=== PATIENT | male | born 1970 | race Caucasian/White ===

== ENCOUNTER 2020-06-10 13:47 | Outpatient (REF) | payer BC, SELFPAY | END 2020-06-10 13:48 | disposition home or self-care (01) | LOC: HO.LAB 13:47 | PROVIDERS: Visit Provider Internal Medicine | DX: Z20.828 Contact with and (suspected) exposure to other viral communicable diseases (principal) | CPT/HCPCS: C9803; U0003 ==

== ENCOUNTER 2021-01-31 21:11 | Emergency (ER) | payer BC, SELFPAY ==
--- NOTE | ~2021-01-31 | US_ITS ---
EXAMINATION: US VENOUS ULTRASOUND WITH DOPPLER LOWER EXTREMITY, RIGHT CLINICAL INFORMATION: Right lower extremity pain COMPARISON: None TECHNIQUE: Ultrasound of the deep veins is performed from the hip to the calf with compression sonography and color and pulse Doppler assessment. Spectral analysis with color-flow imaging is performed. FINDINGS: There is normal venous compression and respiratory variation and augmented flow. The visualized common femoral vein, superficial femoral vein, profunda femoral vein, popliteal vein, and the trifurcation region shows no evidence of deep venous thrombosis. There is no significant popliteal fossa cyst. There is a prominent right inguinal lymph node with normal morphology. This measures 4.5 x 1 x 3.6 cm. No cortical thickening. If the patient's symptoms persist, followup ultrasound in 5 days 7 days might be of value to exclude proximal propagation from a non-visualized calf vein. US/US venous duplex LE RT IMPRESSION: No DVT demonstrated in the right lower extremity.
[2021-01-31 21:12] VITALS: BP 182/103; PULSE 81; RESP 16; TEMP 37.2; O2SAT 96; BMI 45.9
--- NOTE | 2021-01-31 22:06 | ED_ITS ---
HPI - Extremity Problem General Chief complaint: Extremity Problem Stated complaint: DVT Time Seen by Provider: 01/31/21 22:01 History of Present Illness HPI Narrative: 80-year-old male with a history of paroxysmal AFib. History of cellulitis. Complaining of pain and swelling to the right leg. Positive redness. Positive swelling. Has a history of cellulitis said that lower extremity the past. Been on 2 courses of antibiotic. Last 1 was 4 months ago. No history DVTs. No travel history. Not on blood thinners. No history of blood clots in the past. No fever no chills no systemic complaints. Patient is from home. Also history of hypertension high cholesterol. Related Data Previous Rx's Medication Instructions Recorded doxycycline hyclate 100 mg PO BID 7 Days #14 cap 01/31/21 Allergies Allergy/AdvReac Type Severity Reaction Status Date / Time No Known Allergies Allergy Mild N/A Verified 01/31/21 21:16 Review of Systems 2 Review of Systems: Positive pain to the right leg Yes all other systems are reviewed and are negative PMFSH Past Medical History Attestation statement: The following information was validated with the patient. Medical History Afib High cholesterol HTN (hypertension) Sleep apnea Surgical History H/O cardiac radiofrequency ablation Social History Social History Alcohol intake: never Patient Tobacco Use Status: Never used Tobacco Use of substances other than those prescribed or required for medical reasons: No Advance Directives: No Advance Directives Information Provided: Yes Physical Exam Vital Signs: Vital Signs: Last Vital Signs Temp 99.0 F 01/31/21 21:12 Pulse 78 01/31/21 22:56 Resp 15 01/31/21 22:56 BP 164/85 H 01/31/21 22:56 Pulse Ox 96 01/31/21 22:56 Body Mass Index 45.9 Appearance: Alert. Oriented X3. No acute distress. Eyes: Pupils equal, round and reactive to light. ENT: Pharynx normal. Neck: Normal inspection. Neck supple. No lymph nodes noted. No crepitus CVS: Normal heart rate and rhythm. Pulses normal. Normal S1 and S2 Respiratory: No respiratory distress. Breath sounds normal. No Wheezing. No rales Abdomen: Soft and nontender. No rigidity. No distention. good BS x4 Skin: Skin warm and dry. Normal skin color. Normal skin turgor. Extremities: Positive redness to the lower aspect of the right leg. Positive warmth to touch. There is no calf tenderness elicited on palpation. Calf size is equal at 10 cm below the tibial tuberosity. Motor intact. Sensation intact pulse 2 +at dorsalis pedis bilaterally. Neuro: Oriented X 3. No motor deficit. No sensory deficit. Moving all extermities. No slurred speech MDM - Extremity (Nontraumatic) MDM Narrative Medical decision making narrative: Patient's white counts normal. Doppler negative for DVT. Will start patient on doxycycline. Close follow-up outpatient basis. Sugars 150 the patient had a full meal prior to arrival. In stable condition. Lab Data Result diagrams: 01/31/21 22:21 01/31/21 22:21 Labs: Lab Results 01/31/21 01/31/21 01/31/21 Range/Units 22:21 22:21 22:21 WBC 6.9 (4.8-10.8) X10*3/uL RBC 5.13 (4.60-5.80) X10*6/uL Hgb 13.7 L (14.0-18.0) g/dl Hct 41.7 L (42-52) % MCV 81.3 (80-98) fL MCH 26.7 L (27.0-33.0) pg MCHC 32.9 (31.0-36.0) g/dl RDW 13.8 (11.0-16.0) % Plt Count 234 (160-400) X10*3/uL MPV 9.6 (9.4-12.4) fL Immature Gran % (Auto) 0.3 (0.0-0.4) % Neut % (Auto) 59.3 (45-73) % Lymph % (Auto) 28.2 (20-40) % [place] % (Auto) 7.8 (2-11) % Eos % (Auto) 3.5 (0-4) % Baso % (Auto) 0.9 (0-2) % Lymph # (Auto) 1.9 (1.2-4.9) X10*3/uL Sebastian # (Auto) 0.5 (0.1-1.2) X10*3/uL Eos # (Auto) 0.2 (0.0-0.4) X10*3/uL Baso # (Auto) 0.1 (0.0-0.2) X10*3/uL Abs Immat Gran (auto) 0.02 (0.00-0.03) X10*3/uL Absolute Neuts (auto) 4.1 (2.0-8.3) X10*3/uL Absolute Nucleated RBC 0.000 (0.0-0.012) X10*3/uL Nucleated RBC % (auto) 0.0 (0.0-0.2) /100WBC PT 11.8 (9.9-13.0) SEC INR 1.0 (0.9-1.1) Sodium 142 (135-145) mmol/L Potassium 4.0 (3.3-5.1) mmol/L Chloride 107 (96-108) mmol/L Carbon Dioxide 23 (22-29) mmol/L Anion Gap 16 (12-20) BUN 18 H (9-16) mg/dL Creatinine 1.27 (0.5-1.4) mg/dL Estim Creat Clear Calc 99.1 Estimated GFR 60 Random Glucose 150 H (60-115) mg/dL Calcium 8.7 (8.4-10.2) mg/dL Discharge Plan Discharge Clinical Impression: Cellulitis Patient Disposition: Home, Self-Care Instructions: Cellulitis (ED) Prescriptions: New doxycycline hyclate 100 mg capsule 100 mg PO BID 7 Days Qty: 14 RF: 0 Referrals: Physician,Unknown [Primary Care Provider] - 2 days
[2021-01-31 22:26] LABS: MANUAL DIFF FLAG NO
[2021-01-31 22:27] LABS: Basophils Absolute Auto 0.1 X10*3/uL (0.0-0.2); Basophils Percent Auto 0.9 % (0-2); Eosinophils Absolute Auto 0.2 X10*3/uL (0.0-0.4); Eosinophils Percent Auto 3.5 % (0-4); Hematocrit 41.7 % (42-52); Hemoglobin 13.7 g/dl (14.0-18.0); Imm Gran Abs Auto 0.02 X10*3/uL (0.00-0.03); Imm Gran Pct Auto 0.3 % (0.0-0.4); Lymphocytes Absolute Auto 1.9 X10*3/uL (1.2-4.9); Lymphocytes Percent Auto 28.2 % (20-40); Mean Corpuscular HGB Conc 32.9 g/dl (31.0-36.0); Mean Corpuscular Hemoglobin 26.7 pg (27.0-33.0); Mean Corpuscular Volume 81.3 fL (80-98); Mean Platelet Volume 9.6 fL (9.4-12.4); Monocytes Absolute Auto 0.5 X10*3/uL (0.1-1.2); Monocytes Percent Auto 7.8 % (2-11); Neutrophils Absolute Auto 4.1 X10*3/uL (2.0-8.3); Neutrophils Percent Auto 59.3 % (45-73); Platelet Count 234 X10*3/uL (160-400); Red Blood Count 5.13 X10*6/uL (4.60-5.80); Red Cell Distribution Width 13.8 % (11.0-16.0); White Blood Count 6.9 X10*3/uL (4.8-10.8)
[2021-01-31 22:34] LABS: Prothrombin Time 11.8 SEC (9.9-13.0)
[2021-01-31 22:48] LABS: Anion Gap 16 (12-20); Blood Urea Nitrogen 18 mg/dL (9-16); Calcium 8.7 mg/dL (8.4-10.2); Carbon Dioxide 23 mmol/L (22-29); Chloride 107 mmol/L (96-108); Creatinine Clr Calc Pharmacy 99.1; Estimated Glomerular Filt Rate 60; Glucose Random 150 mg/dL (60-115); Sodium 142 mmol/L (135-145)
[2021-01-31 22:56] VITALS: BP 164/85; PULSE 78; RESP 15; O2SAT 96
== END 2021-01-31 23:41 | disposition home or self-care (01) ==
PROVIDERS: Emergency Provider Emergency Medicine Emergency Medical Services
DX: L03.115 Cellulitis of right lower limb (principal); I10 Essential (primary) hypertension
CPT/HCPCS: 36415; 80048; 85025; 85610; 93971; 99284

== ENCOUNTER 2021-07-13 06:05 | Inpatient (IN) | payer BC, SELFPAY ==
[2021-07-13] VITALS (16 sets, daily range): BP systolic 114–176; BP diastolic 66–104; PULSE 70–126; RESP 14–20; TEMP 36.4; O2SAT 96–100; BMI 46.6
--- NOTE | ~2021-07-13 | XR_ITS ---
EXAMINATION: XR CHEST CLINICAL INFORMATION: Weakness COMPARISON: None TECHNIQUE: Frontal view of the chest was obtained. FINDINGS: The cardiac silhouette does not appear enlarged. The thoracic aorta is tortuous. Hilar and mediastinal contours are otherwise unremarkable. The lungs are clear. There is no pleural effusion or pneumothorax. There are degenerative changes of the spine. XR/XR chest 1V IMPRESSION: No evidence for acute disease in the chest.
--- NOTE | 2021-07-13 06:27 | ECG_ITS ---
Test Reason : Afib Blood Pressure : / mmHG Vent. Rate : 119 BPM Atrial Rate : 000 BPM P-R Int : 000 ms QRS Dur : 100 ms QT Int : 340 ms P-R-T Axes : 000 -10 005 degrees QTc Int : 478 ms Atrial fibrillation with rapid ventricular response Inferior infarct , age undetermined Possible Anterior infarct , age undetermined Abnormal ECG No previous ECGs available Referred By: Generic ED Physician Electronically Signed By:EFREN HOPPER
--- NOTE | 2021-07-13 07:41 | ED.ARRPALP ---
HPI - Arrhythmia/Palpitations General Chief Complaint: General Medical Stated Complaint: heart problems Time Seen by Provider: 07/13/21 07:31 Source: patient Mode of arrival: ambulatory Limitations: no limitations History of Present Illness HPI narrative: has had 2 ablations and multiple cardioversions in the past MD complaint: rapid heart beat, heart racing , palpitations and atrial fibrillation Onset (ago): day(s) (Tuesday ) Duration: constant Severity: moderate Context: occurred during rest Arrhythmia history: atrial fibrillation Associated symptoms: shortness of breath and other (feels like I got run over by a truck ) Treatments prior to arrival: other (took his diltiazem yesterday as well as 200mg flecainide no help) Related Data Home Medications Medication Instructions Recorded Confirmed diltiazem HCl 120 mg 1 cap PO DAILY 07/13/21 07/13/21 capsule,extended release 24 hr flecainide 100 mg tablet 1 tab PO BID 07/13/21 07/13/21 lisinopril 40 mg tablet 1 tab PO DAILY 07/13/21 07/13/21 oxycodone-acetaminophen 5 mg-325 1 - 2 tab PO Q4H PRN 07/13/21 07/13/21 mg tablet pravastatin 20 mg tablet 1 tab PO BEDTIME 07/13/21 07/13/21 tramadol 50 mg tablet 1 tab PO TID PRN 07/13/21 07/13/21 Allergies Allergy/AdvReac Type Severity Reaction Status Date / Time No Known Allergies Allergy Mild N/A Verified 01/31/21 21:16 Review of Systems Review of Systems: Constitutional : No Weight loss, No Fever, No Chills ENT/Mouth : No sore throat, No Rhinorrhea Eyes: No Eye Pain, No Swelling Cardiovascular : no Chest Pain, pos SOB, pos Dyspnea on Exertion, No Orthopnea, No Edema, pos Palpitations Respiratory : No Cough, No Sputum Gastrointestinal : pos Nausea, No Vomiting, No Diarrhea, No abdominal Pain, No Hematochezia, No Melena Genitourinary : No Dysuria, No Urinary Frequency Musculoskeletal : No joint pain, No Myalgias, No Joint Swelling Skin : No Skin Lesions, No rash Neuro : pos Weakness, No Numbness, No Dizziness, No Headache Psych : No Anxiety/Panic, No Depression Heme/Lymph: No Bruising, No Lymphadenopathy Endocrine : No Polyuria, No Polydipsia All other systems reviewed and are negative [facility] Past Medical History Medical History (Updated 07/13/21 @ 09:21 by Mary Jane DO) Afib High cholesterol HTN (hypertension) Sleep apnea Surgical History (Updated 07/13/21 @ 12:47 by Stefani Ramirez NP) H/O cardiac radiofrequency ablation Hx of myringotomy Social History Social History Alcohol intake: never Patient Tobacco Use Status: Never used Tobacco Advance Directives: No Advance Directives Information Provided: Yes Physical Exam Vital Signs: Vital Signs: Last Vital Signs Temp 97.6 F 07/13/21 11:04 Pulse 92 07/13/21 11:51 Resp 18 07/13/21 11:51 BP 147/97 H 07/13/21 11:04 Pulse Ox 97 07/13/21 11:04 BMI result Body Mass Index 46.6 Appearance: Alert. Oriented X3. No acute distress. Eyes: Pupils equal, round and reactive to light. ENT: Pharynx normal. Neck: Normal inspection. Neck supple. CVS: tachycardic and irregular heart rate and rhythm. Pulses normal. Respiratory: No respiratory distress. Breath sounds normal. Abdomen: Soft and nontender. Skin: Skin warm and dry. Normal skin color. Normal skin turgor. Extremities: No lower extremity edema. No calf ttp Neuro: Oriented X 3. No motor deficit. No sensory deficit. Course Course Course Narrative: put on dilt gtt at this time given HR in 120s HR down in 80s labs stable HR back up to 120s on dilt gtt at this time - started him on eliquis given PAF , HTN, obesity up to 15mg on dilt gtt MDM - Arrhythmia/Palpitations MDM Narrative Medical decision making narrative: 50 yo male with hx of PAF, HTN, obesity here with c/o being in afib since overdoing it hunting this , not on DOAC - symptoms started tuesday did not take his medications this AM but did take them yesterday. At this time labs, IV dilt and his AM dose of flecainide ordered. Dispo per results and findings. Lab Data Result diagrams: 07/13/21 08:01 07/13/21 08:01 Labs: Lab Results 07/13/21 07/13/2107/13/21 Range/Units 08:01 08:01 08:01 WBC 8.4 (4.8-10.8) X10*3/uL RBC 5.92 H (4.60-5.80) X10*6/uL Hgb 15.6 (14.0-18.0) g/dl Hct 47.9 (42.0-52.0) % MCV 80.9 (80.0-98.0) fL MCH 26.4 L (27.0-33.0) pg MCHC 32.6 (31.0-36.0) g/dl RDW 14.2 (11.0-16.0) % Plt Count 291 (160-400) X10*3/uL MPV 9.6 (9.4-12.4) fL Immature Gran % (Auto) 0.4 (0.0-0.4) % Neut % (Auto) 61.2 (45-73) % Lymph % (Auto) 27.1 (20-40) % [place] % (Auto) 8.2 (2-11) % Eos % (Auto) 2.3 (0-4) % Baso % (Auto) 0.8 (0-2) % Lymph # (Auto) 2.3 (1.2-4.9) X10*3/uL [place] # (Auto) 0.7 (0.1-1.2) X10*3/uL Eos # (Auto) 0.2 (0.0-0.4) X10*3/uL Baso # (Auto) 0.1 (0.0-0.2) X10*3/uL Abs Immat Gran (auto) 0.03 (0.00-0.03) X10*3/uL Absolute Neuts (auto) 5.2 (2.0-8.3) x10*3/uL Absolute Nucleated RBC 0.000 (0.0-0.012) X10*3/uL Nucleated RBC % (auto) 0.0 (0.0-0.2) /100WBC PT 10.9 (9.9-13.0) SEC INR 1.0 (0.9-1.1) APTT 37.6 (24.1-38.0) SEC Sodium 141 (135-145) mmol/L Potassium 4.6 (3.3-5.1) mmol/L Chloride 109 H (96-108) mmol/L Carbon Dioxide 25 (22-29) mmol/L Anion Gap 12 (12-20) BUN 15 (9-16) mg/dL Creatinine 0.90 (0.5-1.4) mg/dL Estim Creat Clear Calc 141.1 Estimated GFR > 60 Random Glucose 120 H (60-115) mg/dL Calcium 9.3 D (8.4-10.2) mg/dL Magnesium 2.1 (1.6-2.6) mg/dL Total Bilirubin 0.5 (0.0-1.0) mg/dL Direct Bilirubin 0.2 (0.0-0.5) mg/dL AST 19 (5-37) U/L ALT 36 (0-40) U/L Alkaline Phosphatase 96 (39-117) U/L Troponin I High Sens (<3.5-35.0) ng/L B-Natriuretic Peptide (<100) pg/mL Total Protein 6.8 (6.5-8.0) g/dL Albumin 4.1 (3.5-5.0) g/dL TSH 0.55 (0.32-4.0) uIU/mL COVID-19 ([facility]) (Negative) COVID-19 Clin Com 07/13/21 07/13/21 Range/Units 08:01 09:12 WBC (4.8-10.8) X10*3/uL RBC (4.60-5.80) X10*6/uL Hgb (14.0-18.0) g/dl Hct (42.0-52.0) % MCV (80.0-98.0) fL MCH (27.0-33.0) pg MCHC (31.0-36.0) g/dl RDW (11.0-16.0) % Plt Count (160-400) X10*3/uL MPV (9.4-12.4) fL Immature Gran % (Auto) (0.0-0.4) % Neut % (Auto) (45-73) % Lymph % (Auto) (20-40) % [place] % (Auto) (2-11) % Eos % (Auto) (0-4) % Baso % (Auto) (0-2) % Lymph # (Auto) (1.2-4.9) X10*3/uL [place] # (Auto) (0.1-1.2) X10*3/uL Eos # (Auto) (0.0-0.4) X10*3/uL Baso # (Auto) (0.0-0.2) X10*3/uL Abs Immat Gran (auto) (0.00-0.03) X10*3/uL Absolute Neuts (auto) (2.0-8.3) x10*3/uL Absolute Nucleated RBC (0.0-0.012) X10*3/uL Nucleated RBC % (auto) (0.0-0.2) /100WBC PT (9.9-13.0) SEC INR (0.9-1.1) APTT (24.1-38.0) SEC Sodium (135-145) mmol/L Potassium (3.3-5.1) mmol/L Chloride (96-108) mmol/L Carbon Dioxide (22-29) mmol/L Anion Gap (12-20) BUN (9-16) mg/dL Creatinine (0.5-1.4) mg/dL Estim Creat Clear Calc Estimated GFR Random Glucose (60-115) mg/dL Calcium (8.4-10.2) mg/dL Magnesium (1.6-2.6) mg/dL Total Bilirubin (0.0-1.0) mg/dL Direct Bilirubin (0.0-0.5) mg/dL AST (5-37) U/L ALT (0-40) U/L Alkaline Phosphatase (39-117) U/L Troponin I High Sens 4.9 (<3.5-35.0) ng/L B-Natriuretic Peptide 135 H (<100) pg/mL Total Protein (6.5-8.0) g/dL Albumin (3.5-5.0) g/dL TSH (0.32-4.0) uIU/mL COVID-19 ([facility]) Negative (Negative) COVID-19 Clin Com See Note ECG Data Attestation: I personally reviewed and interpreted this ECG as follows: ECG interpretation date: 07/13/21 ECG interpretation time: 07:43 Interpretation: Rate: 119s Rhythm: afib with RVR [place]: normal Normal QRS complex. ST T wave : nonspecific, no RAYMUNDO qTC: normal prior studies: no acute ischemia The study has been interpreted contemporaneously by me. EKG #2 Rate: 80s Rhythm: afib [place]: normal Normal QRS complex. ST T wave : no RAYMUNDO, nonspecific qTC: normal prior studies: no acute ischemia artifact noted The study has been interpreted contemporaneously by me. . Discharge Plan Discharge Clinical Impression: Atrial fibrillation with rapid ventricular response Patient Disposition: Admitted As Inpatient
--- NOTE | 2021-07-13 07:53 | ECG_ITS ---
Test Reason : rapid afib Blood Pressure : / mmHG Vent. Rate : 089 BPM Atrial Rate : 000 BPM P-R Int : 000 ms QRS Dur : 100 ms QT Int : 364 ms P-R-T Axes : 000 018 013 degrees QTc Int : 442 ms Atrial fibrillation Abnormal ECG When compared with ECG of 13-JUL-2021 06:31, Borderline criteria for Anterior infarct are no longer Present No significant change was found Referred By: Mary Jane Electronically Signed By:EFREN HOPPER
[2021-07-13 08:04] LABS: MANUAL DIFF FLAG NO
[2021-07-13] MEDS: dilTIAZem HCL 50 MG/10 ML VIAL 10 MG IVPUSH ×2 (08:14→09:08)
[2021-07-13] MEDS: Flecainide Acetate 50 MG TABLET 100 MG PO ×2 (08:14→22:02)
[2021-07-13 08:15] LABS: Basophils Absolute Auto 0.1 X10*3/uL (0.0-0.2); Basophils Percent Auto 0.8 % (0-2); Eosinophils Absolute Auto 0.2 X10*3/uL (0.0-0.4); Eosinophils Percent Auto 2.3 % (0-4); Hematocrit 47.9 % (42.0-52.0); Hemoglobin 15.6 g/dl (14.0-18.0); Imm Gran Abs Auto 0.03 X10*3/uL (0.00-0.03); Imm Gran Pct Auto 0.4 % (0.0-0.4); Lymphocytes Absolute Auto 2.3 X10*3/uL (1.2-4.9); Lymphocytes Percent Auto 27.1 % (20-40); Mean Corpuscular HGB Conc 32.6 g/dl (31.0-36.0); Mean Corpuscular Hemoglobin 26.4 pg (27.0-33.0); Mean Corpuscular Volume 80.9 fL (80.0-98.0); Mean Platelet Volume 9.6 fL (9.4-12.4); Monocytes Absolute Auto 0.7 X10*3/uL (0.1-1.2); Monocytes Percent Auto 8.2 % (2-11); Neutrophils Absolute Auto 5.2 x10*3/uL (2.0-8.3); Neutrophils Percent Auto 61.2 % (45-73); Platelet Count 291 X10*3/uL (160-400); Red Blood Count 5.92 X10*6/uL (4.60-5.80); Red Cell Distribution Width 14.2 % (11.0-16.0); White Blood Count 8.4 X10*3/uL (4.8-10.8)
[2021-07-13 08:24] LABS: Alanine Aminotransferase 36 U/L (0-40); Albumin Level 4.1 g/dL (3.5-5.0); Alkaline Phosphatase 96 U/L (39-117); Anion Gap 12 (12-20); Aspartate Amino Transferase 19 U/L (5-37); Bilirubin Direct 0.2 mg/dL (0.0-0.5); Bilirubin Total 0.5 mg/dL (0.0-1.0); Blood Urea Nitrogen 15 mg/dL (9-16); Calcium 9.3 mg/dL (8.4-10.2); Carbon Dioxide 25 mmol/L (22-29); Chloride 109 mmol/L (96-108); Creatinine Clr Calc Pharmacy 141.1; Estimated Glomerular Filt Rate > 60; Glucose Random 120 mg/dL (60-115); Magnesium 2.1 mg/dL (1.6-2.6); Potassium 4.6 mmol/L (3.3-5.1); Sodium 141 mmol/L (135-145); Total Protein 6.8 g/dL (6.5-8.0)
[2021-07-13 08:28] LABS: B Type Natriuretic Peptide 135 pg/mL (<100); Troponin-I High Sensitivity 4.9 ng/L (<3.5-35.0)
[2021-07-13 08:40] LABS: Prothrombin Time 10.9 SEC (9.9-13.0)
[2021-07-13 08:42] LABS: Partial Thromboplastin Time 37.6 SEC (24.1-38.0)
[2021-07-13 08:43] LABS: TSH reflex Free T4 0.55 uIU/mL (0.32-4.0)
[2021-07-13] MEDS: Acetaminophen 325 MG TABLET 650 MG PO ×2 (09:08→15:44)
[2021-07-13] MEDS: Ibuprofen 600 MG TABLET PO (09:08)
[2021-07-13 09:32] LABS: COVID-19 Test Negative (Negative)
[2021-07-13] MEDS: dilTIAZem HCL 125 MG in 0.9 % Sodium Chloride 100 ML 10 MG IVCONT (10:26)
[2021-07-13] MEDS: Apixaban 5 MG TABLET PO (11:17)
--- NOTE | 2021-07-13 12:45 | P.HPHOSP_ITS ---
History of Present Illness Date of Service: 07/13/21 Attending physician on admission: Colten Ray Chief Complaint: Fast heart rate 50 year old man presenting with increased heart rate with history of atrial fibrillation. he reports that over the weekend he went hunting and had been running up hills and feels like he over did it. He started to have dizziness, palpitations and generally feeling unwell. He has a longstanding history of atrial fibrillation, he has been on flecainide for over 10 years. He has a history of 2 ablations and cardioversions. He is not on anticoagulation. His heart rate has been up to the 120s, blood pressure within acceptable limits. No fever or leukocytosis noted. He denies chest pain, shortness breath, nausea, vomiting, diarrhea. He was given IV diltiazem and a dose of Flecanide, Then subsequently started on diltiazem drip. He will be admitted for further management and treatment of acute on chronic atrial fibrillation with rapid ventricular response. Review of Systems Review of Systems: Denies any recent fever chills or decrease in appetite respiratory denies any shortness of breath coverage production cardiovascular see HPI gastrointestinal denies any dysphagia abdominal pain nausea vomiting or diarrhea genitourinary denies any dysuria frequency or hematuria musculoskeletal denies any joint pain or swelling neuropsych denies any weakness or seizures all other systems reviewed are negative [facility] Medical History (Updated 07/13/21 @ 09:21 by Mary Jane DO) Afib High cholesterol HTN (hypertension) Sleep apnea Pertinent family history: no cardiac disease Surgical History (Updated 07/13/21 @ 12:47 by Stefani Ramirez NP) H/O cardiac radiofrequency ablation Hx of myringotomy Social History Alcohol intake: never Patient Tobacco Use Status: Never used Tobacco Advance Directives: No Advance Directives Information Provided: Yes Meds Allergies Allergy/AdvReac Type Severity Reaction Status Date / Time No Known Allergies Allergy Mild N/A Verified 01/31/21 21:16 Active Medications: Current Medications Acetaminophen (Acetaminophen 325 Mg Tablet) 650 mg PO Q6H PRN PRN Reason: Pain, Mild (Pain Scale 1-3) Enoxaparin Sodium (Enoxaparin Sodium 40 Mg/0.4 Ml Syringe) 40 mg SUBCUT Q24H JASPAL Diltiazem HCl 125 mg/ Sodium (Chloride) 125 mls @ 0 mls/hr IVCONT .Q0M [facility]; Protocol Last Titration: 07/13/21 11:31 Dose: 15 mg/hr, 15 mls/hr Documented by: Ondansetron HCl (Ondansetron Hcl 4 Mg/2 Ml Vial) 4 mg IVPUSH Q8H PRN PRN Reason: Nausea and Vomiting Pharmacy Consult (Consult Rx Perform Med Rec) 1 each MISCELLANE ONCE PRN PRN Reason: Consult order Pharmacy Consult (Consult Rx Perform Med Rec) 1 each MISCELLANE ONCE PRN PRN Reason: Consult order Sodium Chloride (0.9 % Sodium Chloride Flush 3 Ml Syringe) 3 ml IVFLUSH [facility] Home Medications Medication Instructions Recorded Confirmed Last Taken Type diltiazem HCl 120 mg 1 cap PO DAILY 07/13/21 07/13/21 07/12/21 History capsule,extended release 24 hr flecainide 100 mg tablet 1 tab PO BID 07/13/21 07/13/21 07/12/21 History lisinopril 40 mg tablet 1 tab PO DAILY 07/13/21 07/13/21 07/12/21 History oxycodone-acetaminophen 5 mg-325 1 - 2 tab PO Q4H PRN 07/13/21 07/13/21 Unknown History mg tablet pravastatin 20 mg tablet 1 tab PO BEDTIME 07/13/21 07/13/21 07/12/21 History tramadol 50 mg tablet 1 tab PO TID PRN 07/13/21 07/13/21 Unknown History Physical Exam Vital Signs and Narrative: Vital Signs: Last Vital Signs Temp 97.6 F 07/13/21 11:04 Pulse 92 07/13/21 11:51 Resp 18 07/13/21 11:51 BP 147/97 H 07/13/21 11:04 Pulse Ox 97 07/13/21 11:04 BMI result Body Mass Index 46.6 Appearing in no acute distress head is normocephalic atraumatic eyes pupils are PERRLA sclera is anicteric mouth throat mucous membranes are intact and moist neck is supple no lymphadenopathy, no JVD noted lung sounds are clear to auscultation heart regular rate rhythm, clear S1, S2 positive bowel sounds, abdomen is soft, nontender neuro patient is alert x3, no focal deficits Results Labs CBC and Chem 7: 07/13/21 08:01 07/13/21 08:01 Labs: Laboratory Results - last 24 hr 07/13/21 07/13/21 07/13/21 08:01 08:01 08:01 MCV 80.9 MCH 26.4 L MCHC 32.6 RDW 14.2 Plt Count 291 MPV 9.6 Immature Gran % (Auto) 0.4 Neut % (Auto) 61.2 Lymph % (Auto) 27.1 [place] % (Auto) 8.2 Eos % (Auto) 2.3 Baso % (Auto) 0.8 Lymph # (Auto) 2.3 [place] # (Auto) 0.7 Eos # (Auto) 0.2 Baso # (Auto) 0.1 Abs Immat Gran (auto) 0.03 Absolute Neuts (auto) 5.2 Absolute Nucleated RBC 0.000 Nucleated RBC % (auto) 0.0 PT 10.9 INR 1.0 APTT 37.6 Anion Gap 12 Estim Creat Clear Calc 141.1 Estimated GFR > 60 Random Glucose 120 H Calcium 9.3 D Magnesium 2.1 Total Bilirubin 0.5 Direct Bilirubin 0.2 AST 19 ALT 36 Alkaline Phosphatase 96 Troponin I High Sens B-Natriuretic Peptide Total Protein 6.8 Albumin 4.1 TSH 0.55 COVID-19 ([facility]) COVID-19 Clin Com 07/13/21 07/13/21 08:01 09:12 MCV MCH MCHC RDW Plt Count MPV Immature Gran % (Auto) Neut % (Auto) Lymph % (Auto) [place] % (Auto) Eos % (Auto) Baso % (Auto) Lymph # (Auto) [place] # (Auto) Eos # (Auto) Baso # (Auto) Abs Immat Gran (auto) Absolute Neuts (auto) Absolute Nucleated RBC Nucleated RBC % (auto) PT INR APTT Anion Gap Estim Creat Clear Calc Estimated GFR Random Glucose Calcium Magnesium Total Bilirubin Direct Bilirubin AST ALT Alkaline Phosphatase Troponin I High Sens 4.9 B-Natriuretic Peptide 135 H Total Protein Albumin TSH COVID-19 ([facility]) Negative COVID-19 Clin Com See Note Imaging Radiologist's Impressions: Impressions Chest X-Ray 07/13/21 08:32 IMPRESSION: No evidence for acute disease in the chest. Assessment and Plan (1) Atrial fibrillation with rapid ventricular response: Status: Acute 50 year old man admitted with afib rvr, TSH and mag wnl. Acute on chronic rapid atrial fibrillation Started on Diltiazem drip Continue Flecanide Cardiology consult [id number] score 1, not on ac Hypertension. Stable blood pressure Continue lisinopril DVT prophylaxis with Lovenox Attending Dr. Ray Full code Quality Stroke Does the patient have a stroke diagnosis?: No VTE Prior VTE?: No VTE Risk Level:: Medical - moderate - high VTE Device Contraindication: Treatment Not Indicated VTE Drug Contraindication: N/A - Med Ordered
--- NOTE | 2021-07-13 13:38 | PHA.MEDREC ---
Pharmacy Consult ? Medication Reconciliation Pharmacy has completed the medication reconciliation. There are no remarkable issues for provider's attention. Lila Miranda, RajeevD
--- NOTE | 2021-07-13 17:56 | PC.NURSE ---
nwe bag of cardizen 125mg/ 100ml hung. rate unchanged at 15mg/hr.
[2021-07-13] MEDS: oxyCODONE HCl Immed Release 5 MG TABLET PO (20:25)
--- NOTE | 2021-07-13 21:24 | PC.NURSE ---
CALLED PHARMACY FOR ADONIS
--- NOTE | 2021-07-13 22:00 | PC.NURSE ---
RESTING IN BED. LUNGS CLEAR MONITOR AFIB RATE 70-80'S AT REST.
--- NOTE | 2021-07-13 22:00 | MHC.CM.PN ---
CM met with admitted patient with bed assignment pending. A&Ox3. No IMM necessary. No HCP on file. Pt educated, declines at this time. PCP Dr. Russo. Fully vaccinated and boosted with [employer]. Employed by [employer]. Lives with . Has no DME or services. D/C plan is home without services. Transportation by family. CM to follow for d/c needs.
[2021-07-13] MEDS: Pravastatin Sodium 20 MG TABLET PO (22:02)
--- NOTE | 2021-07-13 22:08 | PC.NURSE ---
Addendum entered by Gracie Ruiz 07/13/21 22:15: TIME OF DISCUSSION WAS 1710. Original Note: DR MONTAÑO HERE. DISCUSSED CARDIZEM DRIP WITH HIM. HR 70-80'S AT REST INCREASES TO 100-119 WHEN ACTIVE. ? TITRATE DRIP. CONTINUE DRIP UNLESS HR DROPS.
[2021-07-14] VITALS (12 sets, daily range): BP systolic 110–155; BP diastolic 59–99; PULSE 66–118; RESP 15–20; TEMP 36.4–36.6; O2SAT 94–98
--- NOTE | 2021-07-14 01:16 | PC.NURSE ---
PT MOVED TO BED 13. REPORT GIVEN TO PHILIPP POTTER.
--- NOTE | 2021-07-14 01:58 | PC.NURSE ---
ASSUMING CARE FOR PATIENT, PATIENT HEART RATE IS 68 ON THE MONITOR. PER PROTOCOL OF DILTIAZEM DRIP IS TO HOLD FOR HEART RATE UNDER 90. HOSPITALIST IS AWARE, AWAITING FURTHER ORDERS FROM HOSPITALIST.
[2021-07-14] MEDS: dilTIAZem HCL 30 MG TABLET PO (02:08)
[2021-07-14] MEDS: oxyCODONE HCl Immed Release 5 MG TABLET PO ×3 (05:48→20:22)
[2021-07-14 07:26] LABS: MANUAL DIFF FLAG NO
[2021-07-14 07:40] LABS: Basophils Absolute Auto 0.1 X10*3/uL (0.0-0.2); Basophils Percent Auto 0.7 % (0-2); Eosinophils Absolute Auto 0.2 X10*3/uL (0.0-0.4); Eosinophils Percent Auto 2.7 % (0-4); Hematocrit 48.5 % (42.0-52.0); Hemoglobin 15.7 g/dl (14.0-18.0); Imm Gran Abs Auto 0.03 X10*3/uL (0.00-0.03); Imm Gran Pct Auto 0.4 % (0.0-0.4); Lymphocytes Percent Auto 26.6 % (20-40); Mean Corpuscular HGB Conc 32.4 g/dl (31.0-36.0); Mean Corpuscular Hemoglobin 26.3 pg (27.0-33.0); Mean Corpuscular Volume 81.2 fL (80.0-98.0); Mean Platelet Volume 9.9 fL (9.4-12.4); Monocytes Absolute Auto 0.6 X10*3/uL (0.1-1.2); Monocytes Percent Auto 7.6 % (2-11); Neutrophils Absolute Auto 4.7 x10*3/uL (2.0-8.3); Platelet Count 299 X10*3/uL (160-400); Red Blood Count 5.97 X10*6/uL (4.60-5.80); White Blood Count 7.5 X10*3/uL (4.8-10.8)
[2021-07-14 07:59] LABS: Anion Gap 13 (12-20); Blood Urea Nitrogen 16 mg/dL (9-16); Calcium 9.1 mg/dL (8.4-10.2); Carbon Dioxide 23 mmol/L (22-29); Chloride 106 mmol/L (96-108); Creatinine Clr Calc Pharmacy 123.3; Estimated Glomerular Filt Rate > 60; Glucose Random 166 mg/dL (60-115); Potassium 4.3 mmol/L (3.3-5.1); Sodium 138 mmol/L (135-145)
[2021-07-14] MEDS: dilTIAZem HCL 125 MG in 0.9 % Sodium Chloride 100 ML 10 MG IVCONT (09:11)
[2021-07-14] MEDS: Flecainide Acetate 50 MG TABLET 100 MG PO ×2 (09:12→20:22)
[2021-07-14] MEDS: lisinopriL 40 MG TABLET PO (10:26)
[2021-07-14] MEDS: Apixaban 5 MG TABLET PO ×2 (10:52→20:22)
--- NOTE | 2021-07-14 11:15 | P.PNIM_ITS ---
Subjective Subjective Date of Service: 07/14/21 Review of Systems F-up atrial fibrillation with rapid ventricular response Feeling better but tired Denies chest pain, shortness breath, nausea, vomiting, diarrhea All other systems are reviewed and are negative Physical Exam Vital Signs: Vital Signs: Last Vital Signs Temp 97.9 F 07/14/21 10:38 Pulse 107 H 07/14/21 10:38 Resp 15 07/14/21 10:38 BP 130/98 H 07/14/21 10:38 Pulse Ox 95 07/14/21 10:38 BMI result Body Mass Index 46.6 Appearing in no acute distress lung sounds are clear to auscultation HR IRIR positive bowel sounds, abdomen is soft, nontender neuro patient is alert x3, no focal deficits Objective Data Active Medications Acetaminophen (Acetaminophen 325 Mg Tablet) 650 mg PO Q6H PRN PRN Reason: Pain, Mild (Pain Scale 1-3) Last Admin: 07/13/21 15:44 Dose: 650 mg Documented by: GLENYS Apixaban (Apixaban 5 Mg Tablet) 5 mg PO BID [facility] Last Admin: 07/14/21 10:52 Dose: 5 mg Documented by: POPPY Flecainide Acetate (Flecainide Acetate 50 Mg Tablet) 100 mg PO BID [facility] Last Admin: 07/14/21 09:12 Dose: 100 mg Documented by: CAROLINA Diltiazem HCl 125 mg/ Sodium (Chloride) 125 mls @ 0 mls/hr IVCONT .Q0M [facility], [facility]; Protocol Last Admin: 07/14/21 09:11 Dose: 10 mg/hr, 10 mls/hr Documented by: CAROLINA Lisinopril (Lisinopril 40 Mg Tablet) 40 mg PO DAILY [facility], [facility]; Protocol Last Admin: 07/14/21 10:26 Dose: 40 mg Documented by: MARCOS Ondansetron HCl (Ondansetron Hcl 4 Mg/2 Ml Vial) 4 mg IVPUSH Q8H PRN PRN Reason: Nausea and Vomiting Oxycodone HCl (Oxycodone Hcl Immed Release 5 Mg Tablet) 5 mg PO Q4H PRN PRN Reason: Pain Last Admin: 07/14/21 05:48 Dose: 5 mg Documented by: ERON Pharmacy Consult (Consult Rx Perform Med Rec) 1 each MISCELLANE ONCE PRN PRN Reason: Consult order Pravastatin Sodium (Pravastatin Sodium 20 Mg Tablet) 20 mg PO BEDTIME [facility] Last Admin: 07/13/21 22:02 Dose: 20 mg Documented by: GASPER Sodium Chloride (0.9 % Sodium Chloride Flush 3 Ml Syringe) 3 ml IVFLUSH QSHIFT [facility] Last Admin: 07/14/21 09:12 Dose: Not Given Documented by: CAROLINA Non-Admin Reason: IV Running Labs CBC & Chem 7: 07/14/21 07:13 07/14/21 07:13 Labs: Laboratory Results - last 24 hr 07/14/21 07/14/21 07:13 07:13 MCV 81.2 MCH 26.3 L MCHC 32.4 RDW 14.0 Plt Count 299 MPV 9.9 Immature Gran % (Auto) 0.4 Neut % (Auto) 62.0 Lymph % (Auto) 26.6 [place] % (Auto) 7.6 Eos % (Auto) 2.7 Baso % (Auto) 0.7 Lymph # (Auto) 2.0 [place] # (Auto) 0.6 Eos # (Auto) 0.2 Baso # (Auto) 0.1 Abs Immat Gran (auto) 0.03 Absolute Neuts (auto) 4.7 Absolute Nucleated RBC 0.000 Nucleated RBC % (auto) 0.0 Anion Gap 13 Estim Creat Clear Calc 123.3 Estimated GFR > 60 Random Glucose 166 H D Calcium 9.1 Assessment and Plan (1) Atrial fibrillation with rapid ventricular response: Status: Acute Assessment and Plan: 50 year old man admitted with afib rvr, TSH and mag wnl. Acute on chronic rapid atrial fibrillation Started on Diltiazem drip, continue Continue Flecanide Plan for GORAN cardioversion, NPO after midnight Started Eliquis 5mg BID Hypertension.? Stable blood pressure Continue lisinopril DVT prophylaxis with Eliquis Attending Dr. Ray Full code Quality Stroke Does the patient have a stroke diagnosis?: No VTE Prior VTE?: No VTE Risk Level:: Medical - moderate - high VTE Device Contraindication: Treatment Not Indicated VTE Drug Contraindication: N/A - Med Ordered
--- NOTE | 2021-07-14 11:32 | PM.CNCAR ---
History of Present Illness History of Present Illness Date of Service: 07/14/21 Chief complaint: Afib RVR Narrative: This is a cardiology consultation regarding atrial fibrillation. He generally goes to [facility], Dr. Wynn. He has a history of paroxysmal atrial fibrillation and has undergone 2 ablations more than 10 years ago. He has also had numerous cardioversions and according to him he has almost had 7 or so cardioversions over the last few years but nothing recently. He generally takes flecainide 100 mg b.i.d. at home and diltiazem. Not on anticoagulation due to low thrombotic risk. He is morbidly obese. He was hunting over the weekend and was running up hills and at that time he feels he went into atrial fibrillation. He feels palpitations and some shortness of breath during these times. He was since admitted for further care. He was on Cardizem drip but that was stopped overnight. He continues to be in atrial fibrillation with a rate in the 120s. Review of Systems Review of Systems: Yes all other systems are reviewed and are negative Cardiovascular: Cardiovascular: Reports as per HPI, Reports no additional cardiovascular complaints, Denies acrocyanosis, Denies cool extremities, Denies painful fingertips, Denies chest pain, Denies chest pain at rest, Denies diaphoresis, Denies syncope, Reports irregular heart rhythm, Denies claudication, Denies leg edema, Denies lightheadedness, Denies palpitations and Reports dyspnea Respiratory: Respiratory: Reports dyspnea Neurologic: Denies syncope Endocrine: Endocrine: Denies palpitations PMFSH Past Medical History Medical History (Updated 07/13/21 @ 09:21 by Mary Jane DO) Afib High cholesterol HTN (hypertension) Sleep apnea Family History Pertinent family history: Denies any significant family cardiac issues. Surgical History Surgical History (Updated 07/13/21 @ 12:47 by Stefani Ramirez NP) H/O cardiac radiofrequency ablation Hx of myringotomy Social History Social History Alcohol intake: never Patient Tobacco Use Status: Never used Tobacco Advance Directives: No Advance Directives Information Provided: Yes service: No Current occupational status: employed Meds Allergies Allergy/AdvReac Type Severity Reaction Status Date / Time No Known Allergies Allergy Mild N/A Verified 01/31/21 21:16 Active Medications: Current Medications Acetaminophen (Acetaminophen 325 Mg Tablet) 650 mg PO Q6H PRN PRN Reason: Pain, Mild (Pain Scale 1-3) Last Admin: 07/13/21 15:44 Dose: 650 mg Documented by: Apixaban (Apixaban 5 Mg Tablet) 5 mg PO BID [facility] Last Admin: 07/14/21 10:52 Dose: 5 mg Documented by: Flecainide Acetate (Flecainide Acetate 50 Mg Tablet) 100 mg PO BID [facility] Last Admin: 07/14/21 09:12 Dose: 100 mg Documented by: Diltiazem HCl 125 mg/ Sodium (Chloride) 125 mls @ 0 mls/hr IVCONT .Q0M [facility]; Protocol Last Admin: 07/14/21 09:11 Dose: 10 mg/hr, 10 mls/hr Documented by: Lisinopril (Lisinopril 40 Mg Tablet) 40 mg PO DAILY [facility]; Protocol Last Admin: 07/14/21 10:26 Dose: 40 mg Documented by: Ondansetron HCl (Ondansetron Hcl 4 Mg/2 Ml Vial) 4 mg IVPUSH Q8H PRN PRN Reason: Nausea and Vomiting Oxycodone HCl (Oxycodone Hcl Immed Release 5 Mg Tablet) 5 mg PO Q4H PRN PRN Reason: Pain Last Admin: 07/14/21 05:48 Dose: 5 mg Documented by: Pharmacy Consult (Consult Rx Perform Med Rec) 1 each MISCELLANE ONCE PRN PRN Reason: Consult order Pravastatin Sodium (Pravastatin Sodium 20 Mg Tablet) 20 mg PO BEDTIME [facility] Last Admin: 07/13/21 22:02 Dose: 20 mg Documented by: Sodium Chloride (0.9 % Sodium Chloride Flush 3 Ml Syringe) 3 ml IVFLUSH QSHIFT [facility] Last Admin: 07/14/21 09:12 Dose: Not Given Documented by: Home Medications Medication Instructions Recorded Confirmed Last Taken Type diltiazem HCl 120 mg 1 cap PO DAILY 07/13/21 07/13/21 07/12/21 History capsule,extended release 24 hr flecainide 100 mg tablet 1 tab PO BID 07/13/21 07/13/21 07/12/21 History lisinopril 40 mg tablet 1 tab PO DAILY 07/13/21 07/13/21 07/12/21 History oxycodone-acetaminophen 5 mg-325 1 - 2 tab PO Q4H PRN 07/13/21 07/13/21 Unknown History mg tablet pravastatin 20 mg tablet 1 tab PO BEDTIME 07/13/21 07/13/21 07/12/21 History tramadol 50 mg tablet 1 tab PO TID PRN 07/13/21 07/13/21 Unknown History Physical Exam Vital Signs: Vital Signs: Last Vital Signs Temp 97.9 F 07/14/21 10:38 Pulse 107 H 07/14/21 10:38 Resp 15 07/14/21 10:38 BP 130/98 H 07/14/21 10:38 Pulse Ox 95 07/14/21 10:38 BMI result Body Mass Index 46.6 Const: General: no acute distress HENMT: Other: Unremarkable Neck: Neck: Yes normal visual inspection Chest: Chest palpation & inspection: normal inspection of the chest Resp: Auscultation: no crackles and no wheezes Cardio: Palpation: normal PMI Heart sounds: S1 normal heart sound present, S2 normal heart sound present, no gallops, no murmurs and no rubs GI: Palpation (GI): Soft to palpation Back/Spine/Pelvis: Other: unremarkable Skin: Lesions: other Neuro: Cranial nerves: Yes Other cranial nerve findings present Extrem: General: Yes other Psych: Mental Status: other Objective Labs and Meds Result diagrams: 07/14/21 07:13 07/14/21 07:13 Lab results: Laboratory Results - last 24 hr 07/14/21 07/14/21 07:13 07:13 WBC 7.5 RBC 5.97 H Hgb 15.7 Hct 48.5 MCV 81.2 MCH 26.3 L MCHC 32.4 RDW 14.0 Plt Count 299 MPV 9.9 Immature Gran % (Auto) 0.4 Neut % (Auto) 62.0 Lymph % (Auto) 26.6 [place] % (Auto) 7.6 Eos % (Auto) 2.7 Baso % (Auto) 0.7 Lymph # (Auto) 2.0 [place] # (Auto) 0.6 Eos # (Auto) 0.2 Baso # (Auto) 0.1 Abs Immat Gran (auto) 0.03 Absolute Neuts (auto) 4.7 Absolute Nucleated RBC 0.000 Nucleated RBC % (auto) 0.0 Sodium 138 Potassium 4.3 Chloride 106 Carbon Dioxide 23 Anion Gap 13 BUN 16 Creatinine 1.03 Estim Creat Clear Calc 123.3 Estimated GFR > 60 Random Glucose 166 H D Calcium 9.1 ECG Interpretation: EKG with atrial fibrillation at around 120/Min. Telemetry is similar. Assessment and Plan (1) Atrial fibrillation with rapid ventricular response: Status: Acute He continues to be in atrial fibrillation and rapid rate in spite of the diltiazem drip. We discussed about cardioversion. As he has been in atrial fibrillation for greater than 48 hours, he will need a GORAN as well. We will schedule this for tomorrow. In the interim, continue diltiazem drip. Also start him on Eliquis. We will follow up with you. Procedures Date of Service Date of Service: 07/14/21
--- NOTE | 2021-07-14 12:36 | PC.NURSE ---
PT TRANSPORTED TO ED OVERFLOW UNIT
--- NOTE | 2021-07-14 13:11 | PC.NURSE ---
pt moved over from the main ed, to the overflow pt is running on the cardizam drip at 15mg/hr heart rate in a fib will range from 115-99 bp stable at 137/83 pt also reports having a headache and requested the oxycodone, pain at 01/01
[2021-07-14] MEDS: dilTIAZem HCL 125 MG in 0.9 % Sodium Chloride 100 ML 15 MG IVCONT (16:56)
--- NOTE | 2021-07-14 19:30 | PC.NURSE ---
Assumed care of pt Pt tolerating cardizem gtt Denies any CP/SOB AxO x 4, clear and complete sentences Ambulatory. Gait even and steady A. fib on monitor, HR 80s-90s bpm Will continue to monitor
[2021-07-14] MEDS: Pravastatin Sodium 20 MG TABLET PO (20:22)
--- NOTE | 2021-07-14 20:30 | PC.NURSE ---
Pt medicated per SEP Pt tolerated well Pt c/o chronic back and shoulder pain. Pt medicated per SEP Will continue to monitor
--- NOTE | 2021-07-14 23:07 | PC.NURSE ---
Pt resting on stretcher on his side with eyes closed Breathing even and unlabored Will continue to monitor
[2021-07-15] VITALS (9 sets, daily range): BP systolic 110–134; BP diastolic 70–86; PULSE 70–78; RESP 16–20; TEMP 36.3–36.8; O2SAT 95–99; BMI 47.3
[2021-07-15] MEDS: 0.9 % Sodium Chloride Flush 3 ML SYRINGE IVFLUSH (01:39)
[2021-07-15] MEDS: dilTIAZem HCL 125 MG in 0.9 % Sodium Chloride 100 ML 15 MG IVCONT (01:39)
[2021-07-15] MEDS: Melatonin 3 MG TABLET 6 MG PO (01:46)
--- NOTE | 2021-07-15 05:56 | PC.NURSE ---
Pt wheeled to short stay for cardioversion Pt on monitor and cardizem gtt Report given to RN Per short stay RN, pt may or may not come back to overflow if pt doesn't have room upstairs after procedure
[2021-07-15] MEDS: Lactated Ringers 1,000 ML 50 ML IVCONT (06:35)
[2021-07-15 06:39] LABS: Hematocrit 46.3 % (42.0-52.0); Hemoglobin 15.2 g/dl (14.0-18.0); Mean Corpuscular HGB Conc 32.8 g/dl (31.0-36.0); Mean Corpuscular Hemoglobin 26.6 pg (27.0-33.0); Mean Corpuscular Volume 81.1 fL (80.0-98.0); Mean Platelet Volume 9.7 fL (9.4-12.4); Platelet Count 267 X10*3/uL (160-400); Red Blood Count 5.71 X10*6/uL (4.60-5.80); Red Cell Distribution Width 14.2 % (11.0-16.0); White Blood Count 7.4 X10*3/uL (4.8-10.8)
[2021-07-15 06:53] LABS: Anion Gap 11 (12-20); Blood Urea Nitrogen 16 mg/dL (9-16); Calcium 9.3 mg/dL (8.4-10.2); Carbon Dioxide 24 mmol/L (22-29); Chloride 108 mmol/L (96-108); Creatinine Clr Calc Pharmacy 125.6; Estimated Glomerular Filt Rate > 60; Glucose Random 134 mg/dL (60-115); Potassium 4.4 mmol/L (3.3-5.1); Sodium 139 mmol/L (135-145)
--- NOTE | 2021-07-15 07:25 | P.CONAN_ITS ---
[facility] Active Problems Active Problems: All Active Problems (Updated 07/13/21 @ 09:21 by Mary ling DO) Atrial fibrillation with rapid ventricular response (Acute) Past Medical History Medical History Afib High cholesterol HTN (hypertension) Sleep apnea Surgical History Surgical History H/O cardiac radiofrequency ablation Hx of myringotomy History of Problems with Anesthesia: No Social History Social History Alcohol intake: never Patient Tobacco Use Status: Former Tobacco user Tobacco use type: Cigarette Use of substances other than those prescribed or required for medical reasons: No Are you DNR?: No Advance Directives: No Advance Directives Information Provided: Yes Recently lost weight without trying: No How much weight loss: 14-23 pounds Nutrition Risks: No Nutritional Risk Poor oral hygiene: No service: No Current occupational status: employed Meds Allergies Allergy/AdvReac Type Severity Reaction Status Date / Time No Known Allergies Allergy Mild N/A Verified 01/31/21 21:16 Active Medications: Current Medications Acetaminophen (Acetaminophen 325 Mg Tablet) 650 mg PO Q6H PRN PRN Reason: Pain, Mild (Pain Scale 1-3) Last Admin: 07/13/21 15:44 Dose: 650 mg Documented by: Apixaban (Apixaban 5 Mg Tablet) 5 mg PO BID [facility] Last Admin: 07/14/21 20:22 Dose: 5 mg Documented by: Flecainide Acetate (Flecainide Acetate 50 Mg Tablet) 100 mg PO BID [facility] Last Admin: 07/14/21 20:22 Dose: 100 mg Documented by: Diltiazem HCl 125 mg/ Sodium (Chloride) 125 mls @ 0 mls/hr IVCONT .Q0M [facility]; Protocol Last Admin: 07/15/21 01:39 Dose: 15 mg/hr, 15 mls/hr Documented by: Lisinopril (Lisinopril 40 Mg Tablet) 40 mg PO DAILY [facility]; Protocol Last Admin: 07/14/21 10:26 Dose: 40 mg Documented by: Melatonin (Melatonin 3 Mg Tablet) 6 mg PO BEDTIME PRN PRN Reason: Insomnia Last Admin: 07/15/21 01:46 Dose: 6 mg Documented by: Ondansetron HCl (Ondansetron Hcl 4 Mg/2 Ml Vial) 4 mg IVPUSH Q8H PRN PRN Reason: Nausea and Vomiting Oxycodone HCl (Oxycodone Hcl Immed Release 5 Mg Tablet) 5 mg PO Q4H PRN PRN Reason: Pain Last Admin: 07/14/21 20:22 Dose: 5 mg Documented by: Pharmacy Consult (Consult Rx Perform Med Rec) 1 each MISCELLANE ONCE PRN PRN Reason: Consult order Pravastatin Sodium (Pravastatin Sodium 20 Mg Tablet) 20 mg PO BEDTIME [facility] Last Admin: 07/14/21 20:22 Dose: 20 mg Documented by: Sodium Chloride (0.9 % Sodium Chloride Flush 3 Ml Syringe) [facility] Last Admin: 07/15/21 01:39 Dose: 3 ml Documented by: Home Medications Medication Instructions Recorded Confirmed Last Taken Type diltiazem HCl 120 mg 1 cap PO DAILY 07/13/21 07/13/21 07/12/21 History capsule,extended release 24 hr flecainide 100 mg tablet 1 tab PO BID 07/13/21 07/13/21 07/12/21 History lisinopril 40 mg tablet 1 tab PO DAILY 07/13/21 07/13/21 07/12/21 History oxycodone-acetaminophen 5 mg-325 1 - 2 tab PO Q4H PRN 07/13/21 07/13/21 Unknown History mg tablet pravastatin 20 mg tablet 1 tab PO BEDTIME 07/13/21 07/13/21 07/12/21 History tramadol 50 mg tablet 1 tab PO TID PRN 07/13/21 07/13/21 Unknown History Exam Exam Date and Time: July 15, 2021 0725 Height,Weight and Vital Signs: Height 5 ft 10 in Weight 149.685 kg Last Vital Signs Temp 98.2 F 07/15/21 06:13 Pulse 70 07/15/21 06:13 Resp 16 07/15/21 06:13 BP 128/77 07/15/21 06:13 Pulse Ox 95 07/15/21 06:13 Pertinent Lab Results Pertinent Lab Results: Laboratory Tests 07/13/21 07/13/21 07/13/21 08:01 08:01 08:01 WBC 8.4 RBC 5.92 H Hgb 15.6 Hct 47.9 MCV 80.9 MCH 26.4 L MCHC 32.6 RDW 14.2 Plt Count 291 MPV 9.6 Immature Gran % (Auto) 0.4 Neut % (Auto) 61.2 Lymph % (Auto) 27.1 [place] % (Auto) 8.2 Eos % (Auto) 2.3 Baso % (Auto) 0.8 Lymph # (Auto) 2.3 [place] # (Auto) 0.7 Eos # (Auto) 0.2 Baso # (Auto) 0.1 Abs Immat Gran (auto) 0.03 Absolute Neuts (auto) 5.2 Absolute Nucleated RBC 0.000 Nucleated RBC % (auto) 0.0 PT 10.9 INR 1.0 APTT 37.6 Sodium 141 Potassium 4.6 Chloride 109 H Carbon Dioxide 25 Anion Gap 12 BUN 15 Creatinine 0.90 Estim Creat Clear Calc 141.1 Estimated GFR > 60 Random Glucose 120 H Calcium 9.3 D Magnesium 2.1 Total Bilirubin 0.5 Direct Bilirubin 0.2 AST 19 ALT 36 Alkaline Phosphatase 96 Troponin I High Sens B-Natriuretic Peptide Total Protein 6.8 Albumin 4.1 TSH 0.55 COVID-19 ([facility]) COVID-19 Clin Com 07/13/21 07/13/21 07/14/21 08:01 09:12 07:13 WBC 7.5 RBC 5.97 H Hgb 15.7 Hct 48.5 MCV 81.2 MCH 26.3 L MCHC 32.4 RDW 14.0 Plt Count 299 MPV 9.9 Immature Gran % (Auto) 0.4 Neut % (Auto) 62.0 Lymph % (Auto) 26.6 [place] % (Auto) 7.6 Eos % (Auto) 2.7 Baso % (Auto) 0.7 Lymph # (Auto) 2.0 [place] # (Auto) 0.6 Eos # (Auto) 0.2 Baso # (Auto) 0.1 Abs Immat Gran (auto) 0.03 Absolute Neuts (auto) 4.7 Absolute Nucleated RBC 0.000 Nucleated RBC % (auto) 0.0 PT INR APTT Sodium Potassium Chloride Carbon Dioxide Anion Gap BUN Creatinine Estim Creat Clear Calc Estimated GFR Random Glucose Calcium Magnesium Total Bilirubin Direct Bilirubin AST ALT Alkaline Phosphatase Troponin I High Sens 4.9 B-Natriuretic Peptide 135 H Total Protein Albumin TSH COVID-19 ([facility]) Negative COVID-19 Clin Com See Note 07/14/21 07/15/21 07/15/21 07:13 06:24 06:24 WBC 7.4 RBC 5.71 Hgb 15.2 Hct 46.3 MCV 81.1 MCH 26.6 L MCHC 32.8 RDW 14.2 Plt Count 267 MPV 9.7 Immature Gran % (Auto) Neut % (Auto) Lymph % (Auto) [place] % (Auto) Eos % (Auto) Baso % (Auto) Lymph # (Auto) [place] # (Auto) Eos # (Auto) Baso # (Auto) Abs Immat Gran (auto) Absolute Neuts (auto) Absolute Nucleated RBC 0.000 Nucleated RBC % (auto) 0.0 PT INR APTT Sodium 138 139 Potassium 4.3 4.4 Chloride 106 108 Carbon Dioxide 23 24 Anion Gap 13 11 L BUN 16 16 Creatinine 1.03 1.02 Estim Creat Clear Calc 123.3 125.6 Estimated GFR > 60 > 60 Random Glucose 166 H D 134 H Calcium 9.1 9.3 Magnesium Total Bilirubin Direct Bilirubin AST ALT Alkaline Phosphatase Troponin I High Sens B-Natriuretic Peptide Total Protein Albumin TSH COVID-19 ([facility]) COVID-19 Clin Com Airway Mallampati Class: III (Full neck, small mouth) TM Dist: >3cm Neck ROM: Limited Loose/Missing/Broken Teeth: No Heart: RRR Lungs: CTA Assessment and Plan Assessment Anesthesia Assessment: Anesthesia Plan Discussed and Chart Reviewed Final Anesthetic Review History of Problems with Anesthesia: No NPO: Yes ASA Class: III Final Preanesthetic Review: Meds/Allgs Chart Reviewed, Consent Obtained/Reviewed and Anes Risks/Benef Reviewed Patient Risk: Intermediate Procedure Risk: Intermediate Anesthetic Plan Anesthetic Plan: MAC: Disposition: Standard PACU
--- NOTE | 2021-07-15 07:44 | CA_ITS ---
Transesophageal Echocardiogram Patient (Last, First, Middle): Narinder Klein J Gender: Male Date of : 1970 Age: 50 Procedure Date: 07/15/2021 Procedure Type: Transesophageal Echocardiogram Location: [facility] [place] Height: 177.8 cm Weight: 149.69 kg BSA: 2.58 m2 Heart Rate: bpm Experimental Machinist: Referring MD: Colten Ray MD Symptoms: AFIB, CARDIOVERSION Conclusion: ??? The left ventricular systolic function is normal. The visually estimated ejection fraction is between 60-65%. ??? Left to right interatrial shunting noted by color Doppler; could be iatrogenic ASD from prior ablation. ??? The posterior mitral leaflet has restricted mobility. There is moderate posterior mitral annular calcification. There is mild mitral valve regurgitation. ??? There is no evidence of a thrombus in the left atrial appendage. Findings Procedure Information Consent was obtained prior to the procedure. The adult 3D probe was passed with no difficulty. Left Ventricle Normal left ventricular cavity size. The left ventricular systolic function is normal. The visually estimated ejection fraction is between 60-65%. There is no evidence of regional wall motion abnormalities. Right Ventricle Normal right ventricular cavity size and systolic function. Atria There is lipomatous hypertrophy of the interatrial septum. There is no evidence of a thrombus in the left atrial appendage. Left to right interatrial shunting noted by color Doppler; could be iatrogenic ASD from prior ablation. Aortic Valve There is a normal trileaflet aortic valve. There is no aortic valve stenosis. There is trace (trivial) aortic valve regurgitation. Mitral Valve The posterior mitral leaflet has restricted mobility. There is moderate posterior mitral annular calcification. There is mild mitral valve regurgitation. There is no mitral valve stenosis. Pulmonic Valve The pulmonic valve was not well visualized. Tricuspid Valve Normal tricuspid valve structure. No significant regurgitation. Great Vessels All visible segments of the aorta are normal in size. Pericardium/Pleural Prominent epicardial adipose tissue noted. There is no evidence of pericardial effusion. Prior Study Comparison No prior study available for comparison. Updated by Dilan Barker on 05:13 PM with Status of Final Dilan Barker MD electronically signed on 07/15/2021 5:13:28 PM with status of Final
--- NOTE | 2021-07-15 07:53 | PC.NURSE ---
Report rec'd from Sorin, Pt off unit at this time.
[2021-07-15] MEDS: Apixaban 5 MG TABLET PO (07:56)
--- NOTE | 2021-07-15 08:08 | MHC.SHP ---
Pre-Procedural Eval Section A Date of Service: 07/15/21 Section B Chief Complaint: Afib RVR Allergies: Allergies Allergy/AdvReac Type Severity Reaction Status Date / Time No Known Allergies Allergy Mild N/A Verified 01/31/21 21:16 Plan I have reviewed the history and physical and performed a pertinent physical examination on my patient. No changes have occurred unless specified.
--- NOTE | 2021-07-15 08:58 | ECG_ITS ---
Test Reason : s/p cardioversion Blood Pressure : / mmHG Vent. Rate : 068 BPM Atrial Rate : 068 BPM P-R Int : 258 ms QRS Dur : 108 ms QT Int : 410 ms P-R-T Axes : 074 020 014 degrees QTc Int : 435 ms Sinus rhythm with 1st degree A-V block Otherwise normal ECG When compared with ECG of 13-JUL-2021 09:49, Sinus rhythm has replaced Atrial fibrillation Referred By: Efren Hopper Electronically Signed By:EFREN HOPPER
--- NOTE | 2021-07-15 08:58 | PM.PNCARD ---
Subjective Subjective Date of Service: 07/15/21 Interval history: No new complaints Review of Systems Review of Systems Yes all other systems are reviewed and are negative Cardiovascular: Reports as per HPI, Reports no additional cardiovascular complaints, Denies acrocyanosis, Denies cool extremities, Denies painful fingertips, Denies chest pain, Denies chest pain at rest, Denies diaphoresis, Denies syncope, Reports irregular heart rhythm, Denies claudication, Denies leg edema, Denies lightheadedness, Denies palpitations and Reports dyspnea Respiratory: Reports dyspnea Denies syncope Endocrine: Denies palpitations Physical Exam Vital Signs: Last Vital Signs Temp 98.2 F 07/15/21 06:13 Pulse 70 07/15/21 06:13 Resp 16 07/15/21 06:13 BP 128/77 07/15/21 06:13 Pulse Ox 95 07/15/21 06:13 BMI result Body Mass Index 47.3 Const General: no acute distress HENMT Other: Unremarkable Neck Neck: Yes normal visual inspection Chest Chest palpation & inspection: normal inspection of the chest Resp Auscultation: no crackles and no wheezes Cardio Palpation: normal PMI Heart sounds: S1 normal heart sound present, S2 normal heart sound present, no gallops, no murmurs and no rubs GI Palpation (GI): Soft to palpation Back/Spine/Pelvis Other: unremarkable Skin Lesions: other Neuro Cranial nerves: Yes Other cranial nerve findings present Extrem General: Yes other Psych Mental Status: other Objective Labs and Meds Result diagrams: 07/15/21 06:24 07/15/21 06:24 Lab results: Laboratory Results - last 24 hr 07/15/21 07/15/21 06:24 06:24 WBC 7.4 RBC 5.71 Hgb 15.2 Hct 46.3 MCV 81.1 MCH 26.6 L MCHC 32.8 RDW 14.2 Plt Count 267 MPV 9.7 Absolute Nucleated RBC 0.000 Nucleated RBC % (auto) 0.0 Sodium 139 Potassium 4.4 Chloride 108 Carbon Dioxide 24 Anion Gap 11 L BUN 16 Creatinine 1.02 Estim Creat Clear Calc 125.6 Estimated GFR > 60 Random Glucose 134 H Calcium 9.3 Progress Note: A&P Assessment and plan (1) Atrial fibrillation with rapid ventricular response: Status: Acute Assessment and Plan: GORAN did not show OBEY thrombus. Cardioverted to sinus. Obtain EKG- ordered. Increase Flecainide to 150mg bid. Eliquis 5mg bid. May be discharged. FU with at [facility] [place]. Fall Risk Details Current Medications: Current Medications Acetaminophen (Acetaminophen 325 Mg Tablet) 650 mg PO Q6H PRN PRN Reason: Pain, Mild (Pain Scale 1-3) Last Admin: 07/13/21 15:44 Dose: 650 mg Documented by: Apixaban (Apixaban 5 Mg Tablet) 5 mg PO BID [facility] Last Admin: 07/15/21 07:56 Dose: 5 mg Documented by: Flecainide Acetate (Flecainide Acetate 50 Mg Tablet) 150 mg PO BID [facility] Lactated Ringer's (Lr) 1,000 mls @ 50 mls/hr IVCONT .Q20H [facility] Last Admin: 07/15/21 06:35 Dose: 50 mls/hr Documented by: Lisinopril (Lisinopril 40 Mg Tablet) 40 mg PO DAILY JASPAL; Protocol Last Admin: 07/14/21 10:26 Dose: 40 mg Documented by: Melatonin (Melatonin 3 Mg Tablet) 6 mg PO BEDTIME PRN PRN Reason: Insomnia Last Admin: 07/15/21 01:46 Dose: 6 mg Documented by: Ondansetron HCl (Ondansetron Hcl 4 Mg/2 Ml Vial) 4 mg IVPUSH Q8H PRN PRN Reason: Nausea and Vomiting Oxycodone HCl (Oxycodone Hcl Immed Release 5 Mg Tablet) 5 mg PO Q4H PRN PRN Reason: Pain Last Admin: 07/14/21 20:22 Dose: 5 mg Documented by: Pharmacy Consult (Consult Rx Perform Med Rec) 1 each MISCELLANE ONCE PRN PRN Reason: Consult order Pravastatin Sodium (Pravastatin Sodium 20 Mg Tablet) 20 mg PO BEDTIME [facility] Last Admin: 07/14/21 20:22 Dose: 20 mg Documented by: Sodium Chloride (0.9 % Sodium Chloride Flush 3 Ml Syringe) 3 ml IVFLUSH QSHIFT [facility] Last Admin: 07/15/21 07:52 Dose: Not Given Documented by: Time Spent With Patient Time: Total time spent is greater than 50% in coordination of care (as documented) at patient's floor/unit and/or counseling patient: Time with patient: less than 15 minutes Progress Note: Quality Stroke Does the patient have a stroke diagnosis?: No Procedures Date of Service Date of Service: 07/15/21
--- NOTE | 2021-07-15 09:00 | P.PNCAR_ITS ---
Cardioversion Procedure Note Cardioversion Date of Procedure: 07/15/2021 Ordering Provider: Performing Provider: Indication for Procedure: Atrial fibrillation with rapid ventricular rate Pre-Op Diagnosis: Atrial fibrillation with rapid rate Post-Op Diagnosis: Sinus rhythm GORAN findings (if GORAN Performed): No evidence of left atrial appendage thrombus History: Symptomatic atrial fibrillation with rapid rate in spite of flecainide and diltiazem drip. Hence decided to proceed with GORAN/cardioversion. Consent: Informed consent obtained. Procedure: After informed consent was obtained, patient was taken to the OR. The patient was then positioned appropriately. GORAN part was first completed. Once confirmed to have no OBEY thrombus, we proceeded with cardioversion. The cardioversion pads were placed in anteroposterior position. Once under anesthesia, 150 joules of synchronized shock was administered. The rhythm converted from atrial fibrillation to sinus rhythm. Patient remained in sinus rhythm after the end of procedure. Complications: None. Impression: Successful cardioversion to sinus rhythm. Recommendations: Increased flecainide 150 mg b.i.d.. Continue diltiazem. Eliquis at least for 4 weeks. 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
[2021-07-15] MEDS: Flecainide Acetate 50 MG TABLET 150 MG PO (09:16)
--- NOTE | 2021-07-15 10:16 | P.DS_ITS ---
DS: Providers Provider Date of Service: 07/15/21 Date of admission: 07/13/21 12:42 Primary care physician: Unknown Physician Consults: 07/13/21 12:42 Consult to Cardiology Routine Consulting Provider: Dilan Barker Reason for consultation: afib rvr Has provider been notified: No DS: Diagnosis Discharge Diagnosis (1) Atrial fibrillation with rapid ventricular response: Status: Acute DS: Summary Hospital Course Hospital Course: From admission H&P: 50 year old man presenting with increased heart rate with history of atrial fibrillation.? he reports that over the weekend he went hunting and had been running up hills and feels like he over did it.? He started to have dizziness, palpitations and generally feeling unwell.? He has a longstanding history of atrial fibrillation, he has been on flecainide for over 10 years.? He has a history of 2 ablations and cardioversions.? He is not on anticoagulation. His heart rate has been up to the 120s, blood pressure within acceptable limits.? No fever or leukocytosis noted. He denies chest pain, shortness breath, nausea, vomiting, diarrhea. He was given IV diltiazem and a dose of Flecanide, ? Then subsequently started on diltiazem drip.? He will be admitted for further management and treatment of acute on chronic atrial fibrillation with rapid ventricular response. Hospital Course: Patient presented with shortness of breath and palpitations. He was diagnosed with atrial fibrillation with rapid ventricular response. He was placed on IV Cardizem drip with minimal response. He was evaluated by Cardiology and underwent a GORAN cardioversion Which was successful. He will be discharged on his home dose of flecainide and Cardizem. He will also be sent home on Eliquis. 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 Time Spent with Patient Time attestation: Total time spent providing and/or coordinating discharge services: Discharge coordination time: Greater than 30 minutes Quality: Stroke Does the patient have a stroke diagnosis?: No Physical Exam Vital Signs: Vital Signs: Last Vital Signs Temp 97.4 F 07/15/21 09:50 Pulse 76 07/15/21 09:50 Resp 20 07/15/21 09:50 BP 122/76 07/15/21 09:50 Pulse Ox 96 07/15/21 09:50 BMI result Body Mass Index 47.3 Const: Other: General - no acute distress, appears comfortable Cardiovascular - regular rate and rhythm, S1-S2 Lungs - normal respiratory effort, clear to auscultation bilaterally, no wheezing Abdomen - soft, nontender, no rebound or guarding Extremities - no edema bilaterally Neuro - awake and alert, no focal deficits DS: Data Data Completed and Pending Labs on day of discharge: Laboratory Results - last 24 hr 07/15/21 07/15/21 06:24 06:24 WBC 7.4 RBC 5.71 Hgb 15.2 Hct 46.3 MCV 81.1 MCH 26.6 L MCHC 32.8 RDW 14.2 Plt Count 267 MPV 9.7 Absolute Nucleated RBC 0.000 Nucleated RBC % (auto) 0.0 Sodium 139 Potassium 4.4 Chloride 108 Carbon Dioxide 24 Anion Gap 11 L BUN 16 Creatinine 1.02 Estim Creat Clear Calc 125.6 Estimated GFR > 60 Random Glucose 134 H Calcium 9.3 Discharge Plan Discharge Patient Disposition: Home, Self-Care Discharge Diagnosis: Michelle. Shelly RVR Referrals: Physician,Unknown J [Primary Care Provider] - 1 Week Discharge Medications: New Eliquis 5 mg Tablet 5 mg PO BID Qty: 60 RF: 0 Continued tramadol 50 mg tablet 1 tab PO TID PRN (Reason: Pain) RF: 0 flecainide 100 mg tablet 1 tab PO BID RF: 0 diltiazem HCl 120 mg capsule,extended release 24hr 1 cap PO DAILY RF: 0 pravastatin 20 mg tablet 1 tab PO BEDTIME RF: 0 lisinopril 40 mg tablet 1 tab PO DAILY RF: 0 oxycodone-acetaminophen 5-325 mg tablet 1 - 2 tab PO Q4H PRN (Reason: Pain) RF: 0 Discharge Orders: Discharge Order (Routine); Ordered 07/15/21 Ordered By: Colten Ray Diet: advance to usual diet Activity on Discharge: As tolerated Stand Alone Forms: Patient Portal Discharge page Care Plan Goals: To stay healthy and out of the hospital. Health Concerns: Paulino Bravo RVR Plan of Treatment: Take Felcainide and Cardizem. Take Eliquis -- at least for 4 weeks follow up with your marine insulator within the next few weeks Assessment: See D/C Summary above
[2021-07-15] MEDS: dilTIAZem HCL CD 120 MG CAP.ER.DEG PO (10:38)
--- NOTE | 2021-07-15 10:58 | PC.NURSE ---
Pt DC from Short Stay. Will admit from ED for DC
== END 2021-07-15 10:05 | disposition home or self-care (01) | DRG 201 ==
LOC: HO.ED 11:36 → HO.EDOVER 12:55
PROVIDERS: Internal Medicine; Admitting Provider Nurse Practitioner Acute Care; Emergency Provider Emergency Medicine; PCP Internal Medicine; Visit Provider Family Medicine
PROC: 5A2204Z Restoration of Cardiac Rhythm, Single (ICD-10-PCS; CPT 93312; principal; 2021-07-15 08:00)
DX: I48.0 Paroxysmal atrial fibrillation (principal); Z68.42 Body mass index [BMI] 45.0-49.9, adult; I10 Essential (primary) hypertension; E66.01 Morbid (severe) obesity due to excess calories; Z20.822 Contact with and (suspected) exposure to COVID-19; Z91.14 Patient's other noncompliance with medication regimen; Z87.891 Personal history of nicotine dependence; Z79.01 Long term (current) use of anticoagulants; Z79.891 Long term (current) use of opiate analgesic; Z79.899 Other long term (current) drug therapy
CPT/HCPCS: 36415; 71045; 80048; 80076; 83735; 83880; 84443; 84484; 85025; 85027; 85610; 85730; 87635; 93005; 93312; 99285

== ENCOUNTER 2024-07-30 10:05 | Outpatient (REF) | payer BC, SELFPAY ==
[2024-07-30 15:28] LABS: Adenovirus PCR Not Detected (Not Detect.); Bordetella parapertussis PCR Not Detected (Not Detect.); Bordetella pertussis PCR Not Detected (Not Detect.); Chlamydia pneumoniae PCR Not Detected (Not Detect.); Coronavirus 229E PCR Not Detected (Not Detect.); Coronavirus HKU1 PCR Not Detected (Not Detect.); Coronavirus NL63 PCR Not Detected (Not Detect.); Coronavirus OC43 PCR Not Detected (Not Detect.); Human metapneumovirus PCR Not Detected (Not Detect.); Influenza A PCR Not Detected (Not Detect.); Influenza B PCR Not Detected (Not Detect.); Mycoplasma pneumoniae PCR Not Detected (Not Detect.); Parainfluenza 1 PCR Not Detected (Not Detect.); Parainfluenza 2 PCR Not Detected (Not Detect.); Parainfluenza 3 PCR Not Detected (Not Detect.); Parainfluenza 4 PCR Not Detected (Not Detect.); RSV PCR Detected (Not Detect.); Rhino/Enterovirus PCR Not Detected (Not Detect.)
[2024-07-30 15:42] LABS: SARS-CoV-2 PCR Not Detected (Not Detect.)
== END 2024-07-30 10:06 | disposition home or self-care (01) ==
LOC: HO.LAB 10:05
PROVIDERS: PCP Internal Medicine; Visit Provider Physician Assistant
DX: J06.9 Acute upper respiratory infection, unspecified (principal); J22 Unspecified acute lower respiratory infection
CPT/HCPCS: 87633; 87880

== ENCOUNTER 2024-07-30 10:05 | Outpatient (AMB) | payer BC, SELFPAY ==
--- NOTE | 2024-07-30 10:09 | MHC.OFFWIV ---
Intake Vital Signs 07/30/24 10:13 Height 5 ft 10 in Weight 310 lb BMI 44.5 BP 140/88 H Blood Pressure Location Lt brachial Position Sitting Pulse 85 Pulse Source Pulse Oximeter Temp 98.1 F Temp Source Oral Pulse Oximetry (%) 98 Oxygen Delivery Method Room Air Intake Visit Reasons: [employer]-sore throat, cough, diarrheas, blood mucus Intake Note: Patient here for sore throat, cough, headache, diarrhea, fatigue that started about 2 days ago. Patient Tobacco Use Status: Former Tobacco user Allergies No Known Allergies Allergy (Mild, Verified 07/30/24 10:13) N/A Do you need a note to return to daycare/school/sports/work: No HPI HPI Comments History of Present Illness Details History - The patient is a 53-year-old male presenting with symptoms of an upper respiratory infection, including coughing, sore throat, and diarrhea. - Symptoms began with a sudden onset the previous day, described as severe, with some symptom relief noted this morning. - Negative COVID-19 test. History of ENT evaluation for sinusitis and in possession of prednisone. - Notable for ear concerns, including wax impaction and prior ear tubes, with recent nasal bleeding. - Similar symptoms presented in the patient?s , suggesting domestic exposure to an infectious agent. Physical Exam General: Cooperative, healthy appearing, comfortable and no acute distress Orientation/consciousness: Patient oriented x3 Limitations: No limitations Head: Normal to inspection Ears: Hearing grossly normal bilaterally, external ears normal and TM's normal bilaterally Nose: Normal external nose present, Normal nares present and No nasal discharge present Face and sinus: Normal facial exam and Yes sinuses nontender Mouth: Normal oral and palatal mucosa present and moist mucous membranes Throat: Yes tonsils normal, Yes uvula midline. Posterior oropharynx erythema Eyes: Appearance normal, both eyes and all related structures Neck: Normal visual inspection Respiratory: slight expiratory wheeze. Normal respiratory effort, able to speak in complete sentences, Actively coughing, no respiratory distress, not tachypneic, no tripod positioning and no use of accessory muscles, but a little bit of a wheeze noted in the right upper lobe Cardiovascular: Regular rate and rhythm. Normal S1 and S2 Skin: No rashes or lesions noted Neuro: Patient oriented x3 Extremities: Normal to inspection and Yes no clubbing, cyanosis or edema [facility] Medical History Afib High cholesterol HTN (hypertension) Sleep apnea Surgical History H/O cardiac radiofrequency ablation Hx of myringotomy Social History Alcohol intake: never Patient Tobacco Use Status: Former Tobacco user Tobacco use type: Cigarette service: No Current occupational status: employed Review of Systems Const All systems reviewed & are unremarkable except as noted in HPI and below Physical Exam Vital Signs: Last Vital Signs Temp 98.1 F 07/30/24 10:13 Pulse 85 07/30/24 10:13 BP 140/88 H 07/30/24 10:13 Pulse Ox 98 07/30/24 10:13 Oxygen Delivery Method Room Air 07/30/24 10:13 BMI result Body Mass Index 44.5 Results AMB Rapid Strep AMB Rapid Strep Negative Last Edit by FLAVIA Bell on 07/30/24 10:28 Assessment & Plan Assessment & Plan (1) Lower respiratory infection (e.g., bronchitis, pneumonia, pneumonitis, pulmonitis): Code(s): J22 - Unspecified acute lower respiratory infection Plan: The patient's symptoms indicate an upper respiratory infection. New medications including prednisone and an inhaler are provided to manage respiratory symptoms and congestion before the patient's upcoming travel. The presence of ear wax blockages will be monitored, with potential removal if issues persist. An antibiotic course will be considered if lab results indicate bacterial infection. Pending lab feedback and depending on symptom progression, adjustments to the management plan might be necessary to ensure full recovery before the patient's significant upcoming event. Full viral panel sent for testing. Patient was informed and verbally consented to the use of an ambient scribe for clinic note documentation during this visit Orders: Orders Resp Pathogen Panel - [facility] [place] Today J06.9 - Acute upper respiratory infection, unspecified AMB Rapid Strep Screen Today Z13.9 - Encounter for screening, unspecified Medications: New methylprednisolone PO PER PKG DIR for 6 days 21 ea 0RF albuterol sulfate 90 mcg/actuation 2 puffs inhalation Q6H PRN 8.5 grams 0RF shortness of breath or wheezing or cough Discontinued apixaban (Eliquis) Discontinued Reason: Patient Completed Course 5 mg PO BID 60 tabs 0RF Coding Level of Care Code New Pt Level 3 (03290) Diagnoses Lower respiratory infection (e.g., bronchitis, pneumonia, pneumonitis, pulmonitis) J22
[2024-07-30 10:13] VITALS: BP 140/88; PULSE 85; TEMP 36.7; O2SAT 98; BMI 44.5
== END 2024-07-30 11:01 | disposition home or self-care (01) ==
PROVIDERS: PCP Internal Medicine; Visit Provider Physician Assistant
DX: J22 Unspecified acute lower respiratory infection (principal); Z13.9 Encounter for screening, unspecified